=== PATIENT | male | born 1940 | race American Indian/Alaskan Native ===

== ENCOUNTER 2021-07-31 10:40 | Outpatient (CLI) | payer MEDICARE ==
--- NOTE | 2021-07-31 16:14 | Ultrasound Report ---
ULTRASOUND RENAL INDICATION / CLINICAL INFORMATION: N18.4 CHRONIC KIDNEY DISEASE, STAGE 4 (SEVERE). COMPARISON: None available. FINDINGS: RIGHT KIDNEY: Length = 9.6 cm. - Echogenicity: Mildly echogenic. - Parenchymal Thickness: Mild thinning. - Hydronephrosis: None. - Cyst / Mass: Multiple simple appearing cysts, the largest measuring 1.0 cm within the upper pole. - Stones: None seen. LEFT KIDNEY: Length = 8.6 cm. - Echogenicity: Mildly echogenic. - Parenchymal Thickness: Mild thinning. - Hydronephrosis: None. - Cyst / Mass: Simple appearing midpole cyst measuring 1.0 cm. - Stones: None seen. URINARY BLADDER: Distended. No significant abnormality. FREE FLUID: None. ADDITIONAL FINDINGS: Incidental finding of multiple right hepatic cysts, the largest measuring 1.6 cm . IMPRESSION: 1. Findings suggestive of chronic medical renal disease bilaterally. 2. Bilateral simple renal cysts, as above. 3. Incidental finding of multiple right hepatic cysts. Scribed by: Lora Mendez RDMS, GEORGIAT, PATRICK Scribed: 07/31/2021 1:47 PM I have reviewed the images, agree with this report, and edited this report as needed. Signer Name: Cece Zabala MD Signed: 07/31/2021 4:10 PM Workstation Name: [id number]
== END 2021-07-31 10:41 | disposition home or self-care (01) ==
LOC: US 10:40
DX: N28.1 Cyst of kidney, acquired (principal); N18.4 Chronic kidney disease, stage 4 (severe); K76.89 Other specified diseases of liver
CPT/HCPCS: 76770